=== PATIENT | male | born 1970 | race Two or more races ===

== ENCOUNTER 2019-05-28 21:59 | Emergency (ER) | payer OTHER ==
[~2019-05-28] VITALS: Ht 167.6 cm; Wt 81.6 kg
[2019-05-28 22:11] VITALS: BP 158/103
--- NOTE | 2019-05-28 22:13 | NUR ---
ED Nurse Note: Patient walked in to ER c/o cough x 2 weeks. Denyed fevere, sore throat. Patient presented AAO x4, VSS at this time.
--- NOTE | 2019-05-28 22:22 | Emergency Room Report ---
History of Present Illness General Chief Complaint: Upper Respiratory Illness Source: Patient Present Illness HPI Patient is a 48-year-old male presents after increased cough and difficulty with breathing. He had prior history of illness for approximately 3 weeks. Denies any recent fever. Denies prior history of asthma. He had cough intermittently productive. Frequent episodes of coughing without any vomiting. He denies any chest discomfort. He had been taking Mucinex as well as another srhq-[id number]-[id number] cough medication without improvement. Denies any leg pain or swelling.He denies any significant past medical history. Allergies: Coded Allergies: No Known Allergies (Unverified , 05/28/19) Patient History Past Medical History: see triage record Reviewed Nursing Documentation: PMH: Agreed; PSxH: Agreed Nursing Documentation-PMH Past Medical History: No Stated History Review of Systems All Other Systems: negative except mentioned in HPI Physical Exam Vital Signs Date Time Temp Pulse Resp B/P (MAP) Pulse Ox O2 Delivery O2 Flow Rate FiO2 05/28/19 22:03 97.7 74 18 158/103 (121) 93 Room Air General Appearance: well appearing, no apparent distress, alert, GCS 15 Head: normocephalic, atraumatic ENT: hearing grossly normal, normal voice Neck: full range of motion, supple Respiratory: no respiratory distress, speaking full sentences, wheezing Cardiovascular #1: normal peripheral pulses, no edema Gastrointestinal: normal inspection Musculoskeletal: normal inspection Neurologic: alert, motor strength/tone normal, splitting machine feeder III-XII nml as tested, oriented x3, normal gait Psychiatric: mood/affect normal Skin: no rash Medical Decision Making Diagnostic Impression: Primary Impression: Viral respiratory infection ER Course Patient presented for increased cough. Differential diagnosis include was not limited to bronchitis, pneumonia, viral respiratory infection, foreign body among others. Patient has a benign exam and does not appear to require any imaging or laboratory testing at this time. Patient appears to have residual bronchitis after a viral respiratory infection. He was given breathing treatment as well as oral steroids.Patient appears to be stable for outpatient management. He was given prescription for oral steroids as well as for albuterol. He is advised to take these until symptoms improve. Is advised to follow-up with his primary care physician for recheck. The patient is advised to follow up with primary care doctor in 1-2 days. Patient is advised to return if any worsening condition or if any changes in status that are concerning. This report is dictated with medineering nurse staff community health software which may occasionally lead to discrepancies related to use of this software. Last Vital Signs Date Time Temp Pulse Resp B/P (MAP) Pulse Ox O2 Delivery O2 Flow Rate FiO2 05/28/19 22:11 97.7 18 158/103 93 Room Air 05/28/19 22:11 74 Status: improved Disposition: HOME, SELF-CARE Condition: Stable Scripts Albuterol Sulfate* (ALBUTEROL SULFATE MDI*) 8.5 Gm Hfa.aer.ad 2 PUFF INH Q6H, #1 EA 0 Refills Prov: Barry Billy MD 05/28/19 Prednisone* (PREDNISONE*) 20 Mg Tablet 40 MG ORAL DAILY, #10 TAB Prov: Barry Billy MD 05/28/19 Barry Billy MD May 28, 2019 22:22
[2019-05-28] MEDS ORDERED: ALBUTEROL SULF8.5 GM INH (22:23)
[2019-05-28] MEDS ORDERED: PREDNISONE20 MG ORAL (22:23)
[2019-05-28] MEDS ORDERED: Albuterol/Ipratropium 3ml neb HHN ONE (22:45)
[2019-05-28 22:50] VITALS: BP 158/103
--- NOTE | 2019-05-28 23:57 | NUR ---
ED Nurse Note: Pt cleared by health care Provider for discharge. DC instructions/prescription was given and explained to pt and verbalized understanding of teachings. All medical deviecs such as ID band removed. Pt is AAO x4, ambulatory and left with all personal belongings.
== END 2019-05-28 22:50 | disposition home or self-care (01) ==
LOC: EMR 22:20
DX: B34.9 Viral infection, unspecified (principal); J45.909 Unspecified asthma, uncomplicated
CPT/HCPCS: J7512; Z7502; 99283; J7620